=== PATIENT | male | born 1950 | race Caucasian/White ===

== ENCOUNTER 2017-06-12 08:03 | Day surgery (SDC) | payer MEDICARE, OTHER ==
[2017-06-12] VITALS (9 sets, daily range): BP systolic 149–176; BP diastolic 68–80
[~2017-06-12] VITALS: Ht 182.9 cm; Wt 87.9 kg
[2017-06-12] MEDS ORDERED: normal saline 1000ml 1,000 ML IV PRN (08:20)
[2017-06-12] MEDS ORDERED: heparin 1,000 UNITS/NS 500ml 500 ML ONE (08:43)
[2017-06-12] MEDS ORDERED: LIDOcaine 1%/PF (10mg/ml) 5ml vial ONE (08:43)
[2017-06-12] MEDS ORDERED: tPA-cathflo 2 MG/2 ml IV flush IVF ONE (08:50)
[2017-06-12] MEDS ORDERED: midazolam 2 mg/2 ml injection IV PRN (08:50)
[2017-06-12] MEDS ORDERED: fentaNYL/PF 50MCG/1 ML 2ML syringe IV PRN (08:50)
[2017-06-12] MEDS ORDERED: iohexol 300mg/ml 100ml inj. ONE (08:56)
[2017-06-12 09:41] LABS: BASOPHILS % (AUTO) 0.7 % (0-1); EOSINOPHILS # (AUTO) 0.3 X10'3 (0-0.9); EOSINOPHILS % (AUTO) 3.9 % (0-6); HEMATOCRIT 27.9 % (42.0-52.0); HEMOGLOBIN 9.2 g/dl (14.0-17.9); LYMPHOCYTES # (AUTO) 0.8 X10'3 (1.1-4.8); MEAN CORPUSCULAR HEMOGLOBIN 31.6 PG (27.0-31.0); MEAN CORPUSCULAR VOLUME 95.7 FL (78-98); MEAN PLATELET VOLUME 6.9 FL (7.4-10.4); MONOCYTES # (AUTO) 0.9 X10'3 (0-0.9); MONOCYTES % (AUTO) 13.6 % (2-12); NEUTROPHILS # (AUTO) 4.6 X10'3 (1.8-7.7); NEUTROPHILS % (AUTO) 69.8 % (42-75); PLATELET COUNT 239 X10'3 (140-440); RED BLOOD COUNT 2.92 X10'6 (4.70-6.10); RED CELL DISTRIBUTION WIDTH 18.4 % (11.5-14.5); WHITE BLOOD COUNT 6.6 X10'3 (4.5-11.0)
[2017-06-12 09:49] LABS: INR 1.3 INR; PROTHROMBIN TIME 13.3 SECONDS (9.0-12.0)
[2017-06-12] MEDS ORDERED: midazolam 2 mg/2 ml injection ONE (09:52)
[2017-06-12] MEDS ORDERED: fentaNYL/PF 50MCG/1 ML 2ML syringe ONE ×2 (09:53→10:32)
[2017-06-12 11:03] LABS: ANISOCYTOSIS 2+; PLATELET ESTIMATE NORMAL
[2017-06-12 11:04] LABS: POIKILOCYTOSIS FEW; POLYCHROMASIA 1+
[2017-06-12] MEDS ORDERED: SAW/1TAB2 PO (14:14)
[2017-06-12] MEDS ORDERED: FOL0.4T CORPAK (14:14)
[2017-06-12] MEDS ORDERED: HYDR100T27 PO (14:14)
[2017-06-12] MEDS ORDERED: HYDR-565 PO (14:14)
[2017-06-12] MEDS ORDERED: CARV6.253 PO (14:14)
[2017-06-12] MEDS ORDERED: WARF3TAB PO (14:14)
[2017-06-12] MEDS ORDERED: AMLO5TAB PO (14:14)
[2017-06-12] MEDS ORDERED: METO5TAB85 PO (14:14)
[2017-06-12] MEDS ORDERED: VALS160T2 PO (14:14)
[2017-06-12] MEDS ORDERED: FOLI0.8T22 PO (14:14)
[2017-06-12] MEDS ORDERED: INSU100V3 SQ (14:14)
[2017-06-12] MEDS ORDERED: CITA40TA22 PO (14:14)
== END 2017-06-12 11:56 | disposition home or self-care (01) ==
LOC: SSTAY O 08:03
PROVIDERS: ATTEND Radiology Diagnostic Radiology
DX: T82.858A Stenosis of other vascular prosthetic devices, implants and grafts, initial encounter (principal); E11.22 Type 2 diabetes mellitus with diabetic chronic kidney disease; I12.0 Hypertensive chronic kidney disease with stage 5 chronic kidney disease or end stage renal disease; N18.6 End stage renal disease; F32.9 Major depressive disorder, single episode, unspecified; M47.812 Spondylosis without myelopathy or radiculopathy, cervical region; M19.019 Primary osteoarthritis, unspecified shoulder; Z79.82 Long term (current) use of aspirin; Z79.01 Long term (current) use of anticoagulants; Z79.4 Long term (current) use of insulin; Z99.2 Dependence on renal dialysis; Z91.048 Other nonmedicinal substance allergy status; Z87.891 Personal history of nicotine dependence; Z89.011 Acquired absence of right thumb; Z89.021 Acquired absence of right finger(s); Z98.890 Other specified postprocedural states; Z79.899 Other long term (current) drug therapy; Y83.2 Surgical operation with anastomosis, bypass or graft as the cause of abnormal reaction of the patient, or of later complication, without mention of misadventure at the time of the procedure; Y92.89 Other specified places as the place of occurrence of the external cause
CPT/HCPCS: 36415; 36901; 85025; 85610; 99152; 99153; C1769; C1894; J1644; J2001; J2250; J3010; J7030; Q9967; A4620; J2997